=== PATIENT | female | born 1955 | race Caucasian/White ===

== ENCOUNTER 2021-11-22 08:00 | Outpatient (CLI) | payer BC | END 2021-11-22 08:01 | disposition home or self-care (01) | LOC: LAB.N 08:00 | PROVIDERS: ATTEND Registered Nurse | DX: N30.00 Acute cystitis without hematuria (principal) | CPT/HCPCS: 87086; 87181 ==

== ENCOUNTER 2023-06-07 23:25 | Emergency (ER) | payer BC ==
[2023-06-07 23:48] LABS: BASOPHILS # (AUTO) 0.1 10^3/uL (0.0-0.1); BASOPHILS % (AUTO) 0.8 %; HCT - HEMATOCRIT 42.2 % (37.0-47.0); HGB - HEMOGLOBIN 13.9 g/dL (12.0-16.0); LYMPHOCYTES # (AUTO) 3.3 10^3/uL (1.5-3.5); LYMPHOCYTES % (AUTO) 38.1 %; MEAN CORPUSCULAR HEMOGLOBIN 30.3 pg (27.0-31.0); MEAN CORPUSCULAR HGB CONC 32.9 g/dL (32.0-36.0); MEAN CORPUSCULAR VOLUME 91.9 fL (81.0-99.0); MEAN PLATELET VOLUME 11.1 fL (7.9-10.8); MONOCYTES % (AUTO) 11.2 %; NEUTROPHILS # (AUTO) 4.3 10^3/uL (1.5-6.6); NEUTROPHILS % (AUTO) 49.7 %; PLT - PLATELET COUNT 283 10^3/uL (130-450); RED BLOOD COUNT 4.59 10^6/uL (4.20-5.40); RED CELL DISTRIBUTION WIDTH 13.1 % (12.0-15.0); WHITE BLOOD COUNT 8.6 x10^3/uL (4.8-10.8)
--- NOTE | 2023-06-08 00:07 | ED Physician Documentation ---
PD HPI DYSPNEA - Stated complaint Stated Complaint: SOA/HEART PALPITATIONS - Chief complaint Chief Complaint: Cardiac - History obtained from History obtained from: Patient - History of Present Illness Timing - onset: How many hours ago (The patient has felt an irregularity of her heartbeat for the last 3 days reasonably consistent though not always. More noticed at night. Over the past several hours has seemed more consistent and noticeable. She felt her heart rate was low at the 30s or 40s. Somewhat lightheaded/chest pressure.) Timing - onset during: Rest. No: Light activity (she had not noted any skips/irregular during the day past few days. Noted in evening/night. Tonight was at rest with onset of it.) Timing - duration: Days Timing - details: Abrupt onset, Still present (consistent and worse the past several hours. Had had feeling of skipping heart beats the past day, but much more irregular feeling this evening, and felt pulse to be very slow in 30-40 range. Lightheaded and dyspnea.), Intermittant Improved by: Rest, Other (she did take an old metoprolol 50 mg that she had been prescribed years ago for when she feels the palpitations. She states had has prior eval by [facility] [place], with stress testing, ECHO and was to have ablation for PVCs (not atrial fib, per pt) but they could not induce the ectopy.) Worsened by: Exertion (feeling dyspnea with walking around.). No: Laying flat Associated symptoms: Palpitations. No: Fever, Cough, Wheezing, Bilateral edema Similar symptoms before: No diagnosis (she has noted skipping of beats like palptations, with sometimes a feeling of a couple in a row or short time. Has not had the current feeling of very slow pulse with feeling of heart skipping.) Recently seen: Not recently seen Review of Systems Constitutional: denies: Fever, Chills Nose: denies: Rhinorrhea / runny nose, Congestion Throat: denies: Sore throat Cardiac: reports: Palpitations. 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 ) Respiratory: None Neuro: None Endocrine/Autoimmune: None - Past Surgical History Past Surgical History: No - Present Medications Home Medications: Ambulatory Orders Medication Instructions Recorded Confirmed Metoprolol Tartrate [Lopressor] 25 mg PO DAILY 30 Days #30 tablet 06/08/23 - Allergies Allergies/Adverse Reactions: Allergies Allergy/AdvReac Type Severity Reaction Status Date / Time No Known Drug Allergies Allergy Verified 06/07/23 23:36 - Living Situation Living Situation: reports: With spouse/s.o. Living Arrangement: reports: At home - Social History Does the pt smoke?: No Smoking Status: Never smoker Does the pt drink ETOH?: No Does the pt have substance abuse?: No - Family History Family history: reports: CAD - Immunizations Immunizations are current?: Yes PD ED PE NORMAL - Vitals Vital signs reviewed: Yes (monitor says HR 110, but palpable pulse is 35.) - General General: Alert and oriented X 3, No acute distress, Well developed/nourished - Neck Neck: Supple, no meningeal sign, No adenopathy - Cardiac Cardiac: No murmur. No: RRR (irregular with pauses, slow rate heard. ) - Respiratory Respiratory: No respiratory distress, Clear bilaterally - Abdomen Abdomen: Soft, Non tender - Derm Derm: Normal color, Warm and dry - Extremities Extremities: Normal ROM s pain, No edema, No calf tenderness / cord - Neuro Neuro: Alert and oriented X 3, No motor deficit, Normal speech Results - Vitals Vitals: Oxygen O2 Source Room air - EKG (time done) 23:43 EKG releavant findings:: EKG personally interpreted by author of this note. Relevant findings are: Rate: Rate (enter#) (143) Rhythm: Wide complex tachycardia (there are sinus beats singly, followed by junctional or ventricular runs from 3-9 complexes then pause and same repeats. ) Intervals: Other (appears like ?junctional bigeminy but with the junctional portion being runs of tachycardia 3-9 complexes at a time. ) Ischemia: Normal ST segments. No: ST elevation c/w ischemia, ST depression 01:03 EKG releavant findings:: EKG personally interpreted by author of this note. Relevant findings are: Rate: Rate (enter#) (58) Rhythm: NSR [place]: Normal Intervals: Normal ND QRS: Normal Ischemia: Normal ST segments. No: ST elevation c/w ischemia, ST depression - Labs Labs: Laboratory Tests 06/07/23 06/07/23 06/08/23 23:44 23:44 00:28 WBC 8.6 RBC 4.59 Hgb 13.9 Hct 42.2 MCV 91.9 MCH 30.3 MCHC 32.9 RDW 13.1 Plt Count 283 MPV 11.1 H Neut # (Auto) 4.3 Lymph # (Auto) 3.3 [place] # (Auto) 1.0 Eos # (Auto) 0.0 Baso # (Auto) 0.1 Absolute Nucleated RBC 0.00 Nucleated RBC % 0.0 Sodium 137 Potassium 4.7 H Chloride 109 Carbon Dioxide 18 L Anion Gap 10.0 BUN 21 H Creatinine 0.9 Estimated GFR (MDRD) 62 L Glucose 108 H Calcium 8.7 Magnesium 1.9 Total Bilirubin 0.3 AST 28 ALT 13 Alkaline Phosphatase 36 L Troponin I High Sens 2.7 B-Natriuretic Peptide Total Protein 6.2 L Albumin 3.7 Globulin 2.5 Albumin/Globulin Ratio 1.5 Lipase 53 06/08/23 00:28 WBC RBC Hgb Hct MCV MCH MCHC RDW Plt Count MPV Neut # (Auto) Lymph # (Auto) [place] # (Auto) Eos # (Auto) Baso # (Auto) Absolute Nucleated RBC Nucleated RBC % Sodium Potassium Chloride Carbon Dioxide Anion Gap BUN Creatinine Estimated GFR (MDRD) Glucose Calcium Magnesium Total Bilirubin AST ALT Alkaline Phosphatase Troponin I High Sens B-Natriuretic Peptide 132 H Total Protein Albumin Globulin Albumin/Globulin Ratio Lipase - Rads (name of study) chest xray Relevant Findings:: Prelim report reviewed, EMP independent interpretation of test (no acute process) PD Medical Decision Making - ED course Complexity details: reviewed results (lytes are normal. Trop and BNP are normal as well. ), considered differential (having irregular heart rhythm on arrival, with sinus beats followed by junctonal or ventricular beats/runs of 3-9 beats, then pause, and single sinus beat again.), d/w patient, d/w strategic solutions consultant (I wanted consult with Cardiology due to rarity of the rhythm presentation. Initially called several hospitals for consults and took about 4 hours to get a call back. Talked with Cardiology at [facility] and discussed the rhythm. TICKET WORKER said we faxed the ECGs to the facilities.) Reviewed Lab Results: negative troponin, BNP and CXR. No signs of heart failure nor heart strain. Repeat ECG when reverted to NSR was without ischemic changes. ED course: The patient arrived with complaints of chest pressure and lightheadedness and some dyspnea in particular the last several hours. She has noted palpitations feeling with skipping heartbeat over the last 3 days intermittently, more notable in the evening or night. She states she had had similar to this about 10 years ago and was having multiple extra beats even 2 or 3 at a time. She did undergo an attempted ablation but they were unsuccessful at identifying the culprit spot. She seemed to do well which is metoprolol and then subsequently had stopped that and was taking it just when needed for feelings of irregular heartbeat. No history of atrial fibrillation according to the patient. No history of coronary disease nor heart attacks. She had not had problems with this really over the last couple of years. With the symptoms as noted in the last few days, she had taken the metoprolol a couple of times as needed. That had been her prescription pattern for as needed. She states previously on the metoprolol on a daily dosing her heart rate had gotten down into the 40s and 50s and so was stopped. She had not taken the metoprolol for a couple of years. She had been feeling well otherwise recently without any fever chills or recent viral illness. Here in the ER she was feeling somewhat nauseous and given Zofran along with some fluids IV as we are attempting or starting an amiodarone infusion. She had taken oral metoprolol earlier and her sinus beats that were perfusing were in the 30s because of the runs of ectopy were nonperfusing. I felt emphasis on the rhythm would be more appropriate than rate so ordered the amiodarone, as I felt suppression of ventricular ectopy would improve the sinus rate (less disturbance). She seemed stable enough to not attempt cardioversion, and not clear if would be productive since underlying was a sinus rhythm, though interposed with bigeminal runs of jucntional/ventricular tachycardia. Just as the infusion was starting so not really time for any effect, the patient reverted to a sinus rhythm without any ectopy and she was feeling better. She was watched here in the ER for another couple of hours without any ectopy. I did put a call out to consult with cardiology and are awaiting a return call for advice on subsequent medication and follow-up. I have been waiting a couple of hours at this point but I do feel it important to get a second opinion on antiarrhythmic versus beta-ayanna versus calcium ayanna for this process. BNP and troponin are both normal so no signs of heart failure nor heart muscle injury as a precipitant. Electrolytes are within normal range. Repeat EKG is showing a normal sinus rhythm without any ischemia. ULtimately did get call back from a lookback coordinator after several hours, during which time the patient remained in NSR without ectopy and without symptoms, so was a reasonable duration to evaluate for continued stability (another called back later at 6:30 AM). The lookback coordinator felt pt was safe for discharge and manageable with Metoprolol daily. Can be lower dose of 25 mg. - Critical Care Time(min): 35 Comments: potentially unstable hear rhythm with runs of junctional/ventricular tachycardi a. Pt with symptoms. Time Includes: Direct patient care, Reassess patient, Document care, Medical consult Departure - Departure Disposition: 01 Home, Self Care Clinical Impression: Junctional cardiac arrhythmia Condition: Stable Record reviewed to determine appropriate education?: Yes Follow-Up: [facility] - Card [Provider Group] Prescriptions: Metoprolol Tartrate [Lopressor] 25 mg PO DAILY 30 Days #30 tablet Comments: I talked with the lookback coordinator on-call for a second opinion in the suggestion was a low-dose of metoprolol 25 mg daily. Check your heart rate daily over the next week or so and if you find your heart rate and below the mid 50s, then decrease to 12-1/2 mg daily. Follow-up with cardiology office, call for an appointment. Return to the ER if needed for worse symptoms again. Your basic blood tests were good here without any signs of heart muscle injury nor heart failure and your electrolytes were in good range. Unclear the triggering per se of the abnormal extra beats that you had. We did make copies of both EKGs for you to bring with you to the cardiology appointment when you have it. I sent your prescription to [facility] pharmacy. Forms: PCP List Discharge Date/Time: 06/08/23 05:36
[2023-06-08] MEDS ORDERED: SODIUM CHLORIDE 0.9% 500 ML IV STA (00:08)
[2023-06-08] MEDS ORDERED: AMIODARONE 150 MG/3 ML VIAL IVP STA (00:08)
[2023-06-08] MEDS ORDERED: ONDANSETRON 4 MG/2 ML VIAL IVP STA (00:08)
[2023-06-08 00:10] LABS: TROPONIN I HIGH SENSITIVITY 2.7 ng/L (2.3-14.8)
--- NOTE | 2023-06-08 00:17 | XRAY Report ---
PROCEDURE: Chest 1 View X-Ray INDICATIONS: Chest pain TECHNIQUE: One view of the chest was acquired. COMPARISON: None. FINDINGS: Surgical changes and devices: None. Lungs and pleura: No pleural effusions or pneumothorax. Lungs are clear. Mediastinum: Mediastinal contours appear normal. Heart size is normal. Bones and chest wall: No suspicious bony lesions. Overlying soft tissues appear unremarkable. IMPRESSION: No acute cardiopulmonary process. Reviewed by: Gilberto Darling MD on 06/08/2023 12:15 AM [facility] Approved by: Gilberto Darling MD on 06/08/2023 12:15 AM [facility] Station ID: [id number]
[2023-06-08] MEDS ORDERED: AMIODARONE 150 MG/3 ML VIAL ONE (00:29)
[2023-06-08] MEDS ORDERED: AMIODARONE 150 MG/100 ML 100 ML IV SCH (01:00)
[2023-06-08 02:03] LABS: ALBUMIN 3.7 g/dL (3.2-5.5)
[2023-06-08 02:04] LABS: POTASSIUM 4.7 mmol/L (3.5-4.5)
[2023-06-08 02:05] LABS: ALBUMIN/GLOBULIN RATIO 1.5 (1.0-2.2); BILIRUBIN,TOTAL 0.3 mg/dL (0.2-1.0); CALCIUM 8.7 mg/dL (8.5-10.3); CREATININE 0.9 mg/dL (0.6-1.3); TOTAL PROTEIN 6.2 g/dL (6.4-8.9)
[2023-06-08 05:39] VITALS: BP 108/68; O2SAT 98
== END 2023-06-08 05:36 | disposition home or self-care (01) ==
LOC: ED 23:25
DX: I49.8 Other specified cardiac arrhythmias (principal)
CPT/HCPCS: 36415; 71045; 80053; 83690; 83735; 83880; 84484; 85025; 93005; 96365; 96375; 99291; J0282